=== PATIENT | male | born 1960 | race Caucasian/White ===

== ENCOUNTER 2017-05-04 09:47 | Emergency (ER) | payer BC ==
[~2017-05-04] VITALS: Ht 175.3 cm; Wt 97.4 kg
[2017-05-04 09:49] VITALS: BP 167/102; PULSE 86; RESP 18; TEMP 98.1; O2SAT 97
--- NOTE | 2017-05-04 10:15 | PD ---
HPI Chief Complaint: Cold / Flu Symptoms Time Seen by Provider: 10:15 Travel History International Travel<30 days: No Contact w/Intl Traveler<30days: No Traveled to known affect area: No History of Present Illness HPI 56-year-old male came to the emergency room with history of cough for past 2 days. No history of fever or chills. No history of shortness of breath. Patient says his phlegm is white in color. Patient is otherwise relatively healthy. Vital signs are stable. He wanted to make sure he did not have any infection that he could give to his mother who has pulmonary fibrosis. [facility] Past Medical History Narrative Medical List of his past medical, surgical, social and family history is reviewed from the nursing note. Medical History: Denies Significant Hx Influenza Vaccination: No ?: Not Past Surgical History Surgical History: No Previous Surgery Social History Alcohol Use: Yes (OCCAS) Tobacco Use: No Substance Use: No Allergies-Medications (Allergen,Severity, Reaction): Coded Allergies: No Known Allergies (Unverified , 05/04/17) Comments No known drug allergies. Reported Meds & Prescriptions Reported Meds & Active Scripts Active No Active Prescriptions or Reported Medications Narrative Medication List of his home medications reviewed from the nursing note. Review of Systems Except as stated in HPI: all other systems reviewed are Neg Physical Exam Narrative GENERAL: Awake, alert, no obvious distress SKIN: Focused skin assessment warm/dry. HEAD: Atraumatic. Normocephalic. EYES: Pupils equal and round. No scleral icterus. No injection or drainage. ENT: No nasal bleeding or discharge. Mucous membranes pink and moist. NECK: Trachea midline. No JVD. CARDIOVASCULAR: Regular rate and rhythm. No murmur appreciated. RESPIRATORY: No accessory muscle use. Clear to auscultation. Breath sounds equal bilaterally. GASTROINTESTINAL: Abdomen soft, non-tender, nondistended. Hepatic and splenic margins not palpable. MUSCULOSKELETAL: No obvious deformities. No clubbing. No cyanosis. No edema. NEUROLOGICAL: Awake and alert. No obvious cranial nerve deficits. Motor grossly within normal limits. Normal speech. PSYCHIATRIC: Appropriate mood and affect; insight and judgment normal. Data Data Last Documented VS Vital Signs Date Time Temp Pulse Resp B/P (MAP) Pulse Ox O2 Delivery O2 Flow Rate FiO2 05/04/17 09:49 98.1 86 18 167/102 (123) 97 MDM Medical Decision Making Medical Screen Exam Complete: Yes Emergency Medical Condition: Yes Medical Record Reviewed: Yes Differential Diagnosis Viral bronchitis, pneumonia, cough Narrative Course 10:24 AM my exam was completely normal. Given all the symptoms I am not concerned about pneumonia at this point. However patient will be going home with instructions to return if symptoms worsen. He understands. I gave him 2 masks from the emergency room to use if his cough worsens. Patient is comfortable with that plan. Procedures EKG Prior to Arrival: No Diagnosis Primary Impression: Cough Additional Impression: Viral bronchitis Referrals: Primary Care Physician Additional Instructions: Return to the ER if you start developing shortness of breath, fever and chills, phlegm changing in color etc. Otherwise follow-up with your primary care. He could wear a mask to protect the others from catching any viral infection while he is to continue to have the cough. Drink tea with lemon and honey. Cough lozenges may help to which he could get [id number]. Med/Other Pt SpecificInfo: No Change to Meds Scripts No Active Prescriptions or Reported Meds Disposition: 01 DISCHARGE HOME Condition: Stable Ray Esquivel MD May 04, 2017 10:15
== END 2017-05-04 10:30 | disposition home or self-care (01) ==
LOC: PHEFT 09:47
DX: R05 Cough (principal); J20.8 Acute bronchitis due to other specified organisms
CPT/HCPCS: 99282